=== PATIENT | male | born 1975 | race African-American/Black ===

== ENCOUNTER 2016-07-18 17:13 | Emergency (ER) | payer BC ==
[2016-07-18 17:22] VITALS: BP 132/84; PULSE 77; TEMP 98.2; BMI 31.8
--- NOTE | 2016-07-18 21:37 | PDOC ---
History of Present Illness - General History Source: Patient Exam Limitations: No Limitations - History of Present Illness Initial Comments: 07/18/16 21:51 The patient is a 41 year old male with significant past medical history of hyperlipidemia who presents to the ED 4 days of lightheadedness. Patient reports he developed lightheadedness early Saturday morning that lasts a few seconds and resolves on its own. His lightheadedness worsened in the past 2 days. States his lightheadedness feels like vertigo and is exacerbated by movement. Patient reports he noted when he gets up from a seated position or when he turns his head to the side, he becomes lightheaded. Reports associated nausea, but no vomiting. The patient denies fever, chills, diaphoresis, cough, SOB, chest pain, palpitations, abdominal pain, and diarrhea. Allergies: NKDA Social History: No alcohol, tobacco, or drug use reported. Past Surgical History: L shoulder and L knee repair PCP: None reported <Kaylyn Núñez - Last Filed: 07/18/16 21:50> - General History Source: Patient <Dakota Owens - Last Filed: 07/18/16 23:52> - General Chief Complaint: Lightheaded Stated Complaint: DIZZINESS Time Seen by Provider: 07/18/16 20:38 Past History <Kaylyn Núñez - Last Filed: 07/18/16 21:50> - Past Medical History Hypercholesterolemia: Yes Psychiatric Problems: Yes (depression, schizoaffective d/o) - Psycho/Social/Smoking Cessation Hx Anxiety: No Suicidal Ideation: No Smoking Status: No Smoking History: Never smoked Number of Cigarettes Smoked Daily: 0 Hx Alcohol Use: Yes (SOCIAL) Drug/Substance Use Hx: No Substance Use Type: None <Dakota Owens - Last Filed: 07/18/16 23:52> - Past Medical History Allergies/Adverse Reactions: Allergies Allergy/AdvReac Type Severity Reaction Status Date / Time No Known Allergies Allergy Verified 07/18/16 17:23 Home Medications: Ambulatory Orders No Home Medications 0 dose .ROUTE UTDICT 05/21/13 Meclizine HCl 25 mg PO TID #60 tablet 07/18/16 Review of Systems - Review of Systems Able to Perform ROS?: Yes Comments:: 07/18/16 21:51 CONSTITUTIONAL: Absent: fever, no chills, no fatigue EYES: Absent: visual changes ENT: Absent: ear pain, no sore throat CARDIOVASCULAR: +lightheadedness Absent: chest pain, no palpitations RESPIRATORY: Absent: cough, no SOB GI: +nausea Absent: abdominal pain, no vomiting, no constipation, no diarrhea GENITOURINARY: Absent: dysuria, no frequency, no hematuria MUSCULOSKELETAL: Absent: back pain, no arthralgia, no myalgia SKIN: Absent: rash NEURO: Absent: headache <Kaylyn Núñez - Last Filed: 07/18/16 21:50> *Physical Exam - Vital Signs Last Vital Signs Temp Pulse Resp BP Pulse Ox 98.2 F 77 20 132/84 99 07/18/16 17:19 07/18/16 17:19 07/18/16 17:19 07/18/16 17:19 07/18/16 17:19 - Physical Exam Comments: 07/18/16 21:51 GENERAL: Well-appearing, well-nourished. No apparent distress. HEENT: Normocephalic, atraumatic. PERRL, EOM intact. CARDIOVASCULAR: Normal S1, S2. Regular rate and rhythm. PULMONARY: Clear to auscultation bilaterally. ABDOMEN: Soft, non-distended, non-tender. EXTREMITIES: Normal ROM in all four extremities. No gross deformities. SKIN: Warm, dry. No rash NEUROLOGICAL: No focal neurological deficits. <Kaylyn Núñez - Last Filed: 07/18/16 21:50> - Vital Signs Last Vital Signs Temp Pulse Resp BP Pulse Ox 98.2 F 77 20 132/84 99 07/18/16 17:19 07/18/16 17:19 07/18/16 17:19 07/18/16 17:19 07/18/16 17:19 <Dakota Owens - Last Filed: 07/18/16 23:52> ED Treatment Course - LABORATORY CBC & Chemistry Diagram: 07/18/16 22:45 <Dakota Owens - Last Filed: 07/18/16 23:52> Medical Decision Making - Medical Decision Making 07/18/16 23:50 Dr. Owens: The scribe's documentation has been prepared under my direction and personally reviewed by me in its entirery. I confirm that the note above accurately reflects all work, treatment, procedures, and medical decision making performed by me. <Dakota Owens - Last Filed: 07/18/16 23:52> *DC/Admit/Observation/Transfer - Attestations Scribe Attestion: 07/18/16 21:51 Documentation prepared by Kaylyn Núñez, acting as registered medical assistant for Dakota Owens MD/DO. <Kaylyn Núñez - Last Filed: 07/18/16 21:50> - Discharge Dispostion Admit: No <Dakota Owens - Last Filed: 07/18/16 23:52> Diagnosis at time of Disposition: Vertigo - Discharge Dispostion Disposition: HOME Condition at time of disposition: Stable - Prescriptions Prescriptions: Meclizine HCl 25 mg PO TID #60 tablet - Referrals Referrals: Renard Ramesh MD [Staff Physician] - - Patient Instructions Printed Discharge Instructions: DI for Vertigo Additional Instructions: take two tabs of Meclizine every 8 hours for the first two days. then take one tab every 8 hours for two days. the try and stop taking the medication.
[2016-07-18] MEDS ORDERED: MECLIZINE HCL 25 MG TABLET (FP) PO STA (21:42)
[2016-07-18] MEDS ORDERED: MECLIZINE HCL 25 MG TABLET (FP) ONE (21:52)
[2016-07-18 23:20] LABS: ALK PHOS 42 U/L (45-117); ANION GAP 9 (8-16); BILIRUBIN,TOTAL 0.6 mg/dL (0.2-1.0); CALCIUM 8.6 mg/dL (8.5-10.1); CO2 30 mmol/L (21-32); CREATININE 1.3 mg/dL (0.7-1.3); GLUCOSE,RANDOM 83 mg/dL (74-106); MAGNESIUM 2.2 mg/dL (1.8-2.4); SGOT/AST 37 U/L (15-37); SGPT/ALT 55 U/L (12-78); TOT PROT 7.4 g/dl (6.4-8.2)
== END 2016-07-18 23:57 | disposition home or self-care (01) ==
LOC: JER 17:13
DX: R42 Dizziness and giddiness (principal); F32.9 Major depressive disorder, single episode, unspecified; F25.9 Schizoaffective disorder, unspecified
CPT/HCPCS: 36415; 70450-TC; 80053; 83735; 99282-25

== ENCOUNTER 2020-09-10 14:01 | Emergency (ER) | payer BC ==
[2020-09-10 14:13] VITALS: BMI 29.0
[2020-09-10 15:40] LABS: CALCIUM 8.6 mg/dL (8.5-10.1)
[2020-09-10 15:44] LABS: CREATININE 1.4 mg/dL (0.55-1.3)
[2020-09-10 15:46] LABS: BILIRUBIN,TOTAL 0.5 mg/dL (0.2-1); TOT PROT 7.4 g/dl (6.4-8.2)
[2020-09-10 17:36] LABS: BASO % 0.3 % (0-2.0); EOS % 0.3 % (0-4.5); HEMATOCRIT 40.2 % (35.4-49); HEMOGLOBIN 13.7 GM/dL (11.7-16.9); LYMPH % 15.2 % (8-40); MCH 30.8 pg (25.7-33.7); MCHC 34.2 g/dl (32.0-35.9); MEAN CELL VOLUME 90.2 fl (80-96); MEAN PLT VOLUME 9.9 fl (7.5-11.1); NEUT % 76.2 % (42.8-82.8); PLATELET COUNT 163 10^3/uL (134-434); RBC 4.46 M/mm3 (4.00-5.60); RDW 12.8 % (11.9-15.9); WHITE BLOOD COUNT 6.4 K/mm3 (4.0-10.0)
[2020-09-10 19:07] VITALS: BP 134/89; PULSE 75; TEMP 97
== END 2020-09-10 19:07 | disposition home or self-care (01) ==
LOC: JER 14:01
DX: R20.2 Paresthesia of skin (principal)
CPT/HCPCS: 36415; 70450-TC; 80053; 82962; 85025; 99283-25

== ENCOUNTER 2020-09-12 10:03 | Emergency (ER) | payer BC ==
[2020-09-12 10:46] VITALS: BP 142/92; PULSE 70; TEMP 98.9; BMI 29.0
[2020-09-12 12:17] LABS: EOS % 0.5 % (0-4.5); HEMATOCRIT 41.4 % (35.4-49); HEMOGLOBIN 14.3 GM/dl (11.7-16.9); LYMPH % 22.4 % (8-40); MCH 31.6 pg (25.7-33.7); MCHC 34.6 g/dl (32.0-35.9); MEAN CELL VOLUME 91.4 fl (80-96); MEAN PLT VOLUME 9.5 fl (7.5-11.1); MONO % 10.5 % (3.8-10.2); NEUT % 65.6 % (42.8-82.8); PLATELET COUNT 152 10^3/uL (134-434); RBC 4.53 M/mm3 (4.00-5.60); RDW 12.3 % (11.9-15.9); WHITE BLOOD COUNT 4.5 K/mm3 (4.0-10.8)
[2020-09-12 12:24] LABS: ALBUMIN 4.4 g/dl (3.4-5.0); CREATININE 1.2 mg/dl (0.55-1.3); MAGNESIUM 1.8 mg/dL (1.8-2.4); PHOSPHOROUS 2.7 mg/dl (2.5-4.9); TOT PROT 7.4 g/dl (6.4-8.2)
== END 2020-09-12 15:00 | disposition home or self-care (01) ==
LOC: FER 10:03
DX: R20.2 Paresthesia of skin (principal); R53.1 Weakness
CPT/HCPCS: 36415; 70450-TC; 80053; 82550; 82553; 82607; 82747; 83735; 84100; 84443; 84484; 85014; 85025; 86780; 93005; 99285-25

== ENCOUNTER 2021-05-13 10:23 | Emergency (ER) | payer BC ==
[2021-05-13] MEDS ORDERED: SODIUM CHLORIDE 1,000 ML IV SCH (10:30)
[2021-05-13 10:36] VITALS: TEMP 98.9; BMI 27.9
[2021-05-13 11:01] LABS: BASO % 0.5 % (0-2.0); EOS % 0.4 % (0-4.5); HEMATOCRIT 37.8 % (35.4-49); HEMOGLOBIN 13.2 GM/dL (11.7-16.9); LYMPH % 38.6 % (8-40); MCH 31.8 pg (25.7-33.7); MCHC 34.9 g/dl (32.0-35.9); MEAN PLT VOLUME 9.6 fl (7.5-11.1); MONO % 13.9 % (3.8-10.2); NEUT % 46.6 % (42.8-82.8); PLATELET COUNT 176 10^3/uL (134-434); RBC 4.16 M/mm3 (4.00-5.60); RDW 13.3 % (11.9-15.9); WHITE BLOOD COUNT 5.8 K/mm3 (4.0-10.0)
[2021-05-13 11:23] LABS: CALCIUM 8.7 mg/dL (8.5-10.1)
[2021-05-13 11:24] LABS: BLOOD UREA NITROGEN 15.4 mg/dL (7-18)
[2021-05-13 11:27] LABS: CREATININE 1.3 mg/dL (0.55-1.3)
[2021-05-13 11:28] LABS: BILIRUBIN,TOTAL 0.6 mg/dL (0.2-1); TOT PROT 7.1 g/dl (6.4-8.2)
[2021-05-13 11:49] LABS: ACTIVATED PTT 45.4 SECONDS (25.2-36.5); INR 1.15 (0.83-1.09); PROTHROMBIN TIME (PATIENT) 13.3 SEC (9.7-13.0)
[2021-05-13 12:49] LABS: URINE APPEARANCE CLEAR; URINE BILIRUBIN NEGATIVE (NEGATIVE); URINE COLOR YELLOW; URINE GLUCOSE (UA) NEGATIVE (NEGATIVE); URINE KETONE TRACE (NEGATIVE); URINE LEUK ESTERASE NEGATIVE (NEGATIVE); URINE NITRITE NEGATIVE (NEGATIVE); URINE PROTEIN NEGATIVE (NEGATIVE); URINE UROBILINOGEN 0.2 mg/dL (0.2-1.0)
[2021-05-13 13:25] LABS: MAGNESIUM 2.1 mg/dL (1.8-2.4)
[2021-05-13 15:47] VITALS: BP 123/83; PULSE 70
== END 2021-05-13 16:06 | disposition home or self-care (01) ==
LOC: JER 10:23
PROC: 3E0337Z Introduction of Electrolytic and Water Balance Substance into Peripheral Vein, Percutaneous Approach (ICD-10-PCS; principal; 2021-05-13)
DX: R53.1 Weakness (principal); R20.2 Paresthesia of skin
CPT/HCPCS: 36415; 70450-TC; 71045-TC-FY; 80053; 80061; 81003; 82962; 83036; 83735; 84484; 85025; 85610; 85730; 86850; 86900; 86901; 93005; 93010; 99291

== ENCOUNTER 2022-02-02 13:47 | Emergency (ER) | payer BC ==
[2022-02-02 14:05] VITALS: BMI 27.8
[2022-02-02] MEDS ORDERED: LORazepam 2 MG TABLET PO ONE (14:50)
[2022-02-02] MEDS ORDERED: LORazepam 1 MG TABLET ONE (15:00)
[2022-02-02 15:17] LABS: BASO % 0.7 % (0-2.0); EOS % 2.5 % (0-4.5); HEMATOCRIT 40.8 % (35.4-49); HEMOGLOBIN 13.7 GM/dL (11.7-16.9); LYMPH % 31.7 % (8-40); MCH 30.6 pg (25.7-33.7); MCHC 33.5 g/dl (32.0-35.9); MEAN CELL VOLUME 91.2 fl (80-96); MEAN PLT VOLUME 9.6 fl (7.5-11.1); MONO % 11.9 % (3.8-10.2); NEUT % 53.2 % (42.8-82.8); PLATELET COUNT 161 10^3/uL (134-434); RBC 4.47 M/mm3 (4.00-5.60); RDW 12.4 % (11.9-15.9); WHITE BLOOD COUNT 4.4 K/mm3 (4.0-10.0)
[2022-02-02 15:45] LABS: CALCIUM 9.1 mg/dL (8.5-10.1)
[2022-02-02 15:46] LABS: BLOOD UREA NITROGEN 11.6 mg/dL (7-18)
[2022-02-02 15:48] LABS: CREATININE 1.3 mg/dL (0.55-1.3)
[2022-02-02 15:50] LABS: BILIRUBIN,TOTAL 0.6 mg/dL (0.2-1); TOT PROT 7.5 g/dl (6.4-8.2)
[2022-02-02 15:59] VITALS: BP 120/84; PULSE 70; RESP 16; TEMP 98.3
== END 2022-02-02 16:29 | disposition home or self-care (01) ==
LOC: JER 13:47
DX: F41.9 Anxiety disorder, unspecified (principal); R06.00 Dyspnea, unspecified; R07.9 Chest pain, unspecified
CPT/HCPCS: 36415; 71046-TC-FY; 80053; 83690; 84484; 85025; 85379; 93005; 93010; 99285-25

== ENCOUNTER 2022-02-09 20:23 | Emergency (ER) | payer BC ==
[2022-02-09 20:45] VITALS: BP 158/90; PULSE 114; RESP 18; TEMP 98.3; BMI 27.9
[2022-02-09] MEDS ORDERED: ACETAMINOPHEN 1000 MG/100 ML BAG IVPB ONE ×2 (21:33→21:44)
[2022-02-09] MEDS ORDERED: ACETAMINOPHEN INJECTION 100 ML IVPB ONE (21:48)
[2022-02-09 21:58] LABS: BASO % 0.4 % (0-2.0); HEMATOCRIT 37.2 % (35.4-49); HEMOGLOBIN 12.8 GM/dL (11.7-16.9); LYMPH % 18.3 % (8-40); MCH 31.4 pg (25.7-33.7); MCHC 34.5 g/dl (32.0-35.9); MEAN PLT VOLUME 9.4 fl (7.5-11.1); MONO % 10.6 % (3.8-10.2); NEUT % 69.7 % (42.8-82.8); PLATELET COUNT 178 10^3/uL (134-434); RBC 4.09 M/mm3 (4.00-5.60); RDW 12.7 % (11.9-15.9); WHITE BLOOD COUNT 5.6 K/mm3 (4.0-10.0)
[2022-02-09 22:08] LABS: INR 1.19 (0.83-1.09); PROTHROMBIN TIME (PATIENT) 13.7 SEC (9.7-13.0)
[2022-02-09 22:10] LABS: ACTIVATED PTT 41.8 SECONDS (25.2-36.5)
[2022-02-09 23:01] LABS: ALBUMIN 3.9 g/dl (3.4-5.0); BLOOD UREA NITROGEN 22.1 mg/dL (7-18); CALCIUM 8.8 mg/dL (8.5-10.1)
[2022-02-09 23:04] LABS: CREATININE 1.4 mg/dL (0.55-1.3)
[2022-02-09 23:06] LABS: BILIRUBIN,TOTAL 0.6 mg/dL (0.2-1); TOT PROT 7.2 g/dl (6.4-8.2)
[2022-02-10] MEDS ORDERED: SODIUM CHLORIDE 0.9% 500 ML INFUS.BAG IV ONE (00:29)
== END 2022-02-10 02:20 | disposition home or self-care (01) ==
LOC: JER 20:23
PROC: 3E033GC Introduction of Other Therapeutic Substance into Peripheral Vein, Percutaneous Approach (ICD-10-PCS; principal; 2022-02-09)
DX: R07.89 Other chest pain (principal)
CPT/HCPCS: 0241U-QW; 36415; 71046-TC-FY; 71275-TC; 80053; 84484; 85025; 85379; 85610; 85730; 93005; 93010; 99285-25

== ENCOUNTER 2022-03-05 23:28 | Observation (INO) | payer BC ==
[2022-03-05 23:37] VITALS: BMI 27.1
[2022-03-06 02:48] LABS: BASO % 0.3 % (0-2.0); EOS % 0.4 % (0-4.5); HEMATOCRIT 41.9 % (35.4-49); LYMPH % 15.7 % (8-40); MCH 30.2 pg (25.7-33.7); MCHC 33.4 g/dl (32.0-35.9); MEAN CELL VOLUME 90.4 fl (80-96); MEAN PLT VOLUME 9.3 fl (7.5-11.1); MONO % 8.4 % (3.8-10.2); NEUT % 75.2 % (42.8-82.8); PLATELET COUNT 190 10^3/uL (134-434); RBC 4.64 M/mm3 (4.00-5.60); RDW 12.9 % (11.9-15.9); WHITE BLOOD COUNT 6.4 K/mm3 (4.0-10.0)
[2022-03-06 03:14] LABS: CALCIUM 8.9 mg/dL (8.5-10.1)
[2022-03-06 03:15] LABS: BLOOD UREA NITROGEN 11.2 mg/dL (7-18); MAGNESIUM 1.9 mg/dL (1.8-2.4)
[2022-03-06 03:18] LABS: CREATININE 1.2 mg/dL (0.55-1.3)
[2022-03-06 03:20] LABS: BILIRUBIN,TOTAL 0.5 mg/dL (0.2-1); TOT PROT 7.4 g/dl (6.4-8.2)
[2022-03-07 08:18] LABS: BASO % 0.4 % (0-2.0); EOS % 2.4 % (0-4.5); HEMATOCRIT 37.2 % (35.4-49); HEMOGLOBIN 12.7 GM/dL (11.7-16.9); LYMPH % 35.2 % (8-40); MCH 30.8 pg (25.7-33.7); MCHC 34.2 g/dl (32.0-35.9); MEAN CELL VOLUME 90.2 fl (80-96); MEAN PLT VOLUME 9.8 fl (7.5-11.1); MONO % 12.8 % (3.8-10.2); NEUT % 49.2 % (42.8-82.8); PLATELET COUNT 159 10^3/uL (134-434); RBC 4.12 M/mm3 (4.00-5.60); RDW 13.2 % (11.9-15.9); WHITE BLOOD COUNT 3.7 K/mm3 (4.0-10.0)
[2022-03-07 08:25] LABS: ALBUMIN 3.5 g/dl (3.4-5.0); PHOSPHOROUS 3.4 mg/dL (2.5-4.9)
[2022-03-07 08:27] LABS: BILIRUBIN,TOTAL 0.7 mg/dL (0.2-1); BLOOD UREA NITROGEN 14.1 mg/dL (7-18); CALCIUM 8.8 mg/dL (8.5-10.1); MAGNESIUM 2.3 mg/dL (1.8-2.4); TOT PROT 6.6 g/dl (6.4-8.2)
[2022-03-07 08:29] LABS: CREATININE 1.3 mg/dL (0.55-1.3)
[2022-03-07] MEDS ORDERED: ENOXAPARIN NA (PORCINE) 40 MG/0.4 ML DISP.SYRIN SQ ONE (09:25)
[2022-03-07] MEDS: ENOXAPARIN NA (PORCINE) 40 MG/0.4 ML DISP.SYRIN SQ SCH (09:34)
[2022-03-07 22:24] VITALS: TEMP 97.8
[2022-03-08 06:14] VITALS: BP 118/82; PULSE 69; RESP 16
[2022-03-08] MEDS: ENOXAPARIN NA (PORCINE) 40 MG/0.4 ML DISP.SYRIN SQ SCH (09:52)
[2022-03-08] MEDS ORDERED: ENOXAPARIN NA (PORCINE) 40 MG/0.4 ML DISP.SYRIN SQ ONE (09:54)
== END 2022-03-08 10:50 | disposition home or self-care (01) ==
LOC: JER 23:28 → JERBED 03-06 03:10
PROVIDERS: ADMIT Internal Medicine; ATTEND Internal Medicine
PROC: 3E023GC Introduction of Other Therapeutic Substance into Muscle, Percutaneous Approach (ICD-10-PCS; principal; 2022-03-06)
DX: R55 Syncope and collapse (principal); R00.2 Palpitations; F41.8 Other specified anxiety disorders; Z29.8 Encounter for other specified prophylactic measures; Z87.898 Personal history of other specified conditions; R07.89 Other chest pain; R51.9 Headache, unspecified
CPT/HCPCS: 0241U-QW; 36415; 71045-TC-FY; 71275-TC; 80053; 83735; 84100; 84443; 84484; 85025; 85379; 93005; 93010; 93306-TC; 93971; 96372; 99285-25; G0378; Q9967

== ENCOUNTER 2023-03-27 19:20 | Emergency (ER) | payer BC ==
[2023-03-27 19:30] VITALS: BP 138/97; PULSE 68; RESP 18; TEMP 98.6; BMI 29.1
[2023-03-27 20:47] LABS: URIC ACID CRYSTALS FEW /hpf (NONE SEEN)
== END 2023-03-27 23:34 | disposition home or self-care (01) ==
LOC: FER 19:20
DX: R20.0 Anesthesia of skin (principal); R20.2 Paresthesia of skin
CPT/HCPCS: 70450-TC; 72131-TC; 81003; 81015; 87086; 99284-25